=== PATIENT | female | born 1990 | race Caucasian/White ===

== ENCOUNTER 2019-09-08 21:22 | Emergency (ER) | payer MEDICAID ==
[~2019-09-08] VITALS: Ht 162.6 cm; Wt 59.0 kg
[2019-09-08 21:25] VITALS: BP 140/77
--- NOTE | 2019-09-08 21:30 | NUR ---
PT CAME TO THE ED C/O L SIDED FACIAL SWELLING X 4 DAYS AND NUMBNESS X TODAY. PT AAOX4, VSS, RESPIRATIONS EVEN AND UNLABORED ON RA W/NAD NOTED. PT CONNECTED TO THE MONITOR AND POX
== END 2019-09-08 22:18 | disposition home or self-care (01) ==
LOC: ER 21:29
DX: G62.89 Other specified polyneuropathies (principal); F17.210 Nicotine dependence, cigarettes, uncomplicated; E06.3 Autoimmune thyroiditis; E28.2 Polycystic ovarian syndrome; Z91.040 Latex allergy status; Z88.1 Allergy status to other antibiotic agents